=== PATIENT | female | born 2000 | race American Indian/Alaskan Native ===

== ENCOUNTER 2025-02-17 11:39 | Outpatient (CLI) | payer SELFPAY ==
[~2025-02-17] VITALS: Ht 167.6 cm; Wt 67.0 kg
[2025-02-17 11:54] VITALS: BP 119/74
[2025-02-17] MEDS ORDERED: NOXI1TAB PO (12:06)
[2025-02-17] MEDS ORDERED: HYDR-3363 PO (12:06)
[2025-02-17] MEDS ORDERED: DICL10TA PO (12:06)
[2025-02-17] MEDS ORDERED: ASPI81CH33 PO (12:06)
[2025-02-17] MEDS ORDERED: OMEP40CA4 PO (12:06)
[2025-02-17] MEDS ORDERED: IRON65TA2 PO (12:06)
[2025-02-17] MEDS ORDERED: PRENTAB9 PO (12:06)
[2025-02-17] MEDS ORDERED: HOME MED LIST COMPLETE! XX SCH (12:10)
[2025-02-17 12:44] LABS: PLATELET COUNT, AUTOMATED 321 10^3/uL (150-450)
[2025-02-17 12:45] LABS: APPEARANCE, URINE CLEAR (CLEAR); BACTERIA, URINE AUTO 2+ (NEGATIVE); BILIRUBIN, URINE AUTO NEGATIVE (NEGATIVE); BLOOD, URINE BLOOD NEGATIVE (NEGATIVE); GLUCOSE, URINE (UA) AUTO NEGATIVE (NEGATIVE); KETONE, URINE AUTO TRACE mg/dL (NEGATIVE); LEUKOCYTE ESTERASE, URINE AUTO 2+ (NEGATIVE); MUCUS, URINE SMALL (NEGATIVE); NITRITE, URINE AUTO NEGATIVE (NEGATIVE); PROTEIN, URINE AUTO NEGATIVE (NEGATIVE); RBC, URINE AUTO 0 /HPF (0-3); SPECIFIC GRAVITY URINE AUTO 1.005 (1.002-1.035); SQUAMOUS EPITHELIAL CELL UR AU 1 /HPF (0-6); UROBILINOGEN, URINE AUTO 0.2 mg/dL (0.0-2.0); WBC, URINE AUTO 19 /HPF (0-3)
[2025-02-17] MEDS: METOCLOPRAMIDE 10 MG TAB PO ONE (12:45)
[2025-02-17] MEDS: ACETAMINOPHEN 500 MG TAB PO ONE (12:46)
[2025-02-17 12:57] VITALS: BP 118/73
[2025-02-17 13:06] LABS: ALT/SGPT 27 U/L (7.0-40); AST/SGOT 29 U/L (<34); CALCIUM LEVEL 8.3 MG/DL (8.5-10.1); CARBON DIOXIDE LEVEL 24 MMOL/L (20-31); CHLORIDE LEVEL 104 MMOL/L (98-107); CREATININE FOR GFR 0.54 MG/DL (0.55-1.30); GLOMERULAR FILTRATION RATE > 90.0 (>60); POTASSIUM SERUM 3.2 MMOL/L (3.5-5.1); SODIUM LEVEL 140 MMOL/L (136-145)
[2025-02-17 14:26] VITALS: BP 113/70
== END 2025-02-17 14:50 | disposition home or self-care (01) ==
LOC: M LDO 11:39
PROVIDERS: ATTEND Advanced Practice Midwife
DX: O26.893 Other specified pregnancy related conditions, third trimester (principal); R51.9 Headache, unspecified; O21.8 Other vomiting complicating pregnancy; Z87.59 Personal history of other complications of pregnancy, childbirth and the puerperium; Z88.0 Allergy status to penicillin; Z91.09 Other allergy status, other than to drugs and biological substances; Z3A.31 31 weeks gestation of pregnancy
CPT/HCPCS: 59025; 80053; 81001; 82248; 82542; 85027; 87088; 87186; 96374; G0463; J2550

== ENCOUNTER → 2025-03-19 | Outpatient (CLI) | payer OTHER ==
[~2025-03-19] MED LIST: ASPI81CH33 PO; DICL10TA PO; HYDR-3363 PO; IRON65TA2 PO; NOXI1TAB PO; OMEP40CA4 PO; PRENTAB9 PO
[2025-03-19 17:31] LABS: PLATELET COUNT, AUTOMATED 240 10^3/uL (150-450)
[2025-03-19 17:36] LABS: LDH LACTATE DEHYDROGENASE 137 U/L (120-246)
[2025-03-19 17:38] LABS: ALT/SGPT 11 U/L (7.0-40); AST/SGOT 18 U/L (<34); CREATININE FOR GFR 0.70 MG/DL (0.55-1.30); GLOMERULAR FILTRATION RATE > 90.0 (>60)
[2025-03-19 17:51] LABS: TOTAL PROTEIN,RANDOM URINE 17.5 MG/DL (0.0-14.0)
[2025-03-19 17:59] LABS: HIV 1&2 SCREEN NEGATIVE (NEGATIVE)
[2025-03-19 18:08] LABS: HEPATITIS C VIRUS ABY INDEX 0.08 INDEX (<0.8)
[2025-03-19 19:55] LABS: Trichomonas vaginalis (AMP) NOT DETECTED (NEGATIVE)
[2025-03-19 20:19] LABS: GC DNA AMPLIFICATION NEGATIVE (NEGATIVE)
== END ==
LOC: M PLALAB 13:07
PROVIDERS: ATTEND Advanced Practice Midwife
DX: Z34.93 Encounter for supervision of normal pregnancy, unspecified, third trimester (principal)

== ENCOUNTER → 2025-03-19 | Outpatient (REF) | payer OTHER | LOC: M PLALAB 11:52 | PROVIDERS: ATTEND Advanced Practice Midwife | DX: Z53.9 Procedure and treatment not carried out, unspecified reason (principal) ==